=== PATIENT | male | born 1985 | race Two or more races ===

== ENCOUNTER 2020-12-15 23:00 | Emergency (ER) | payer OTHER ==
[2020-12-15 23:15] VITALS: TEMP 98.2; BMI 35.9
[2020-12-16] MEDS ORDERED: ACETAMINOPHEN 1000 MG/100 ML VIAL (NON FORMULARY) IVPB ONE (00:31)
[2020-12-16] MEDS ORDERED: ACETAMINOPHEN INJECTION 100 ML IVPB ONE (00:57)
[2020-12-16 00:59] LABS: BASO % 0.9 % (0-2.0); EOS % 1.4 % (0-4.5); HEMATOCRIT 34.2 % (35.4-49); HEMOGLOBIN 11.8 GM/dL (11.7-16.9); MCH 30.6 pg (25.7-33.7); MCHC 34.6 g/dl (32.0-35.9); MEAN CELL VOLUME 88.5 fl (80-96); MEAN PLT VOLUME 7.9 fl (7.5-11.1); MONO % 10.1 % (3.8-10.2); NEUT % 54.6 % (42.8-82.8); PLATELET COUNT 351 K/MM3 (134-434); RBC 3.87 M/mm3 (4.00-5.60); RDW 13.4 % (11.9-15.9); WHITE BLOOD COUNT 7.8 K/mm3 (4.0-10.0)
[2020-12-16 01:59] LABS: ALBUMIN 4.3 g/dl (3.4-5.0); BILIRUBIN,TOTAL 0.5 mg/dL (0.2-1); BLOOD UREA NITROGEN 18.4 mg/dL (7-18); CREATININE 1.2 mg/dL (0.55-1.3); TOT PROT 7.7 g/dl (6.4-8.2)
[2020-12-16 02:10] VITALS: BP 136/96; PULSE 74
== END 2020-12-16 02:38 | disposition home or self-care (01) ==
LOC: JER 23:00
PROC: 3E033NZ Introduction of Analgesics, Hypnotics, Sedatives into Peripheral Vein, Percutaneous Approach (ICD-10-PCS; principal; 2020-12-16)
DX: I10 Essential (primary) hypertension (principal)
CPT/HCPCS: 36415; 80053; 85025; 87040; 99284-25; J0131

== ENCOUNTER 2024-10-15 15:55 | Emergency (ER) | payer OTHER ==
[2024-10-15 16:12] VITALS: TEMP 98.8; BMI 37.3
[2024-10-15] MEDS ORDERED: FAMOTIDINE 20 MG TABLET ONE (17:07)
[2024-10-15] MEDS ORDERED: MAG HYDROX/AL HYDROX/SIMETH 30 ML UNIT-DOSE CUP ONE (17:07)
[2024-10-15] MEDS: MAG HYDROX/AL HYDROX/SIMETH 30 ML UNIT-DOSE CUP PO ONE (17:09)
[2024-10-15] MEDS: FAMOTIDINE 10 MG TABLET PO ONE (17:09)
[2024-10-15 17:19] LABS: BASO % 0.8 % (0-2.0); HEMATOCRIT 40.1 % (35.4-49); HEMOGLOBIN 13.8 GM/dL (11.7-16.9); LYMPH % 40.2 % (8-40); MCH 29.5 pg (25.7-33.7); MCHC 34.4 g/dl (32.0-35.9); MEAN CELL VOLUME 85.7 fl (80-96); MEAN PLT VOLUME 7.9 fl (7.5-11.1); PLATELET COUNT 368 10^3/uL (134-434); RBC 4.68 M/mm3 (4.00-5.60); RDW 13.7 % (11.9-15.9); WHITE BLOOD COUNT 7.8 K/mm3 (4.0-10.0)
[2024-10-15 17:29] LABS: POTASSIUM 4.3 mmol/L (3.5-5.1)
[2024-10-15 17:31] LABS: ALBUMIN 4.5 g/dl (3.4-5.0); CALCIUM 10.1 mg/dL (8.5-10.1)
[2024-10-15 17:32] LABS: BLOOD UREA NITROGEN 18.7 mg/dL (7-18)
[2024-10-15 17:35] LABS: CREATININE 1.2 mg/dL (0.55-1.3)
[2024-10-15 17:36] LABS: BILIRUBIN,TOTAL 0.3 mg/dL (0.2-1); TOT PROT 8.5 g/dl (6.4-8.2)
[2024-10-15 18:00] VITALS: BP 158/100; PULSE 77; RESP 17
== END 2024-10-15 18:57 | disposition home or self-care (01) ==
LOC: JER 15:55
DX: I10 Essential (primary) hypertension (principal); R07.9 Chest pain, unspecified; R10.13 Epigastric pain
CPT/HCPCS: 36415; 71045-TC-FY; 80053; 83690; 84484; 85025; 93005; 93010; 99285-25

== ENCOUNTER 2025-05-02 08:44 | Emergency (ER) | payer OTHER ==
[2025-05-02 08:55] VITALS: RESP 20; TEMP 97.9; BMI 28.8
[2025-05-02] MEDS ORDERED: ACETAMINOPHEN INJECTION 100 ML ONE (10:01)
[2025-05-02] MEDS: ACETAMINOPHEN 1000 MG/100 ML BAG IVPB ONE (10:14)
[2025-05-02 10:18] LABS: MCHC 33.1 g/dl (32.3-36.5); MEAN CELL VOLUME 86.6 fl (79.0-92.2); MEAN PLT VOLUME 9.5 fl (9.4-12.4); RDW 13.5 % (12.1-15.9)
[2025-05-02 10:19] LABS: URINE APPEARANCE CLOUDY; URINE BILIRUBIN NEGATIVE (NEGATIVE); URINE COLOR YELLOW; URINE GLUCOSE (UA) NEGATIVE (NEGATIVE); URINE KETONE NEGATIVE (NEGATIVE); URINE LEUK ESTERASE NEGATIVE (NEGATIVE); URINE NITRITE NEGATIVE (NEGATIVE); URINE PROTEIN TRACE (NEGATIVE); URINE UROBILINOGEN 0.2 mg/dL (0.2-1.0)
[2025-05-02 10:36] LABS: GLUCOSE,RANDOM 63.0 mg/dL (74-106)
[2025-05-02 10:37] LABS: TOT PROT 8.1 g/dl (6.4-8.2)
[2025-05-02 10:38] LABS: CO2 20.0 mmol/L (21-32)
[2025-05-02 10:40] LABS: ALK PHOS 74.0 U/L (40-150)
[2025-05-02 10:42] LABS: CREATININE 1.65 mg/dL (0.55-1.3); SGOT/AST 24.0 U/L (5-34); SGPT/ALT 33.0 U/L (0-55)
[2025-05-02 11:00] LABS: HCV DIAGNOSTIC IN-HOUSE W/RFLX NON-REACTIVE (NONREACTIVE)
[2025-05-02 11:31] LABS: HIV INTERPRETATION NEGATIVE (NEGATIVE)
[2025-05-02] MEDS: SODIUM CHLORIDE 0.9% 500 ML INFUS.BAG IV ONE ×2 (11:43→12:26)
[2025-05-02 13:30] LABS: GLUCOSE,RANDOM 77.0 mg/dL (74-106)
[2025-05-02 13:32] LABS: CO2 22.0 mmol/L (21-32)
[2025-05-02 13:36] VITALS: BP 127/83; PULSE 72
[2025-05-02 13:36] LABS: CREATININE 1.33 mg/dL (0.55-1.3)
[2025-05-02] MEDS ORDERED: SODIUM CHLORIDE 0.9% 500 ML INFUS.BAG IV ONE (13:46)
== END 2025-05-02 13:56 | disposition home or self-care (01) ==
LOC: JER 08:44
PROC: 3E033NZ Introduction of Analgesics, Hypnotics, Sedatives into Peripheral Vein, Percutaneous Approach (ICD-10-PCS; principal; 2025-05-02)
DX: S00.83XA Contusion of other part of head, initial encounter (principal); R55 Syncope and collapse; R42 Dizziness and giddiness; R06.02 Shortness of breath; R53.1 Weakness; R07.89 Other chest pain; R53.83 Other fatigue; F10.90 Alcohol use, unspecified, uncomplicated; W18.30XA Fall on same level, unspecified, initial encounter; Y92.252 Music hall as the place of occurrence of the external cause
CPT/HCPCS: 36415; 70450-TC; 70486-TC; 71046-TC-FY; 72125-TC; 80048; 80053; 81003; 82550; 82962; 83735; 84484; 85027; 86803; 87086; 87389; 93005; 93010; 99285-25